=== PATIENT | male | born 1955 | race Caucasian/White ===

== ENCOUNTER 2019-07-19 10:24 | Emergency (ER) | payer OTHER ==
--- NOTE | 2019-07-19 10:55 | EDM.PDOC ---
ED HPI GENERAL MEDICAL PROBLEM - General Stated Complaint: TWISTED ANKLE AT WORK + SOME OTHER THINGS Time Seen by Provider: 07/19/19 10:45 Source of Information: Reports: Patient, RN, RN Notes Reviewed History Limitations: Reports: No Limitations - History of Present Illness INITIAL COMMENTS - FREE TEXT/NARRATIVE: Presents to ER ambulating with complaint of twisting left ankle. 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 Patient lost his balance when he twisted his ankle fell backward landed on but and left hip, hit his head on a bike rack. Patient said he hit his head on the bike rack hard enough that his hat flew off and his glasses flew off. Patient states possible seconds loss of consciousness. States this occurred about 730 this morning, and he continued to work until now. Patient denies any other health problems other than seasonal allergies. Patient states he does take a baby aspirin daily. Complains of pain in the left ankle, left hip area. GCS upon arrival is 15. GCS at 1 hour: 15 GCS at discharge: 15 Onset: Today, Sudden Duration: Constant Location: Reports: Lower Extremity, Left Quality: Reports: Ache, Throbbing Severity: Moderate Improves with: Reports: None Worsens with: Reports: None Associated Symptoms: Reports: No Other Symptoms - Related Data Allergies Allergy/AdvReac Type Severity Reaction Status Date / Time metoprolol succinate Allergy Dizziness Verified 07/19/19 10:34 [From Toprol XL] sulfamethoxazole Allergy Lightheaded Verified 07/19/19 10:34 [From Bactrim] ness trimethoprim [From Bactrim] Allergy Lightheaded Verified 07/19/19 10:34 ness Home Meds: Home Meds Aspirin [Ecotrin] 81 mg PO DAILY 04/29/15 [History] Cetirizine [ZyrTEC] 10 mg PO DAILY 04/29/15 [History] Fluticasone Propionate [Flonase] 2 sprays NASBOTH DAILY PRN 04/29/15 [History] Hydrochlorothiazide 25 mg PO DAILY 04/29/15 [History] Ibuprofen [Advil] 200 mg PO Q6HR PRN 04/29/15 [History] Ketotifen Fumarate [Zaditor] 1 drop EYEBOTH BID PRN 04/29/15 [History] Losartan Potassium [Cozaar] 100 mg PO DAILY 04/29/15 [History] Naphazoline HCl/Pheniramine [Naphcon-A Eye Drops] 1 drop EYEBOTH QID PRN [History] atorvaSTATin [Lipitor] 20 mg PO BEDTIME 04/29/15 [History] Past Medical History HEENT History: Reports: None Cardiovascular History: Reports: Hypertension Respiratory History: Reports: None Gastrointestinal History: Reports: None Genitourinary History: Reports: None Musculoskeletal History: Reports: None Psychiatric History: Reports: Anxiety Endocrine/Metabolic History: Reports: None Hematologic History: Reports: None Immunologic History: Reports: None Oncologic (Cancer) History: Reports: None Dermatologic History: Reports: None Social & Family History - Family History HEENT: Reports: None Cardiac: Reports: Angina Respiratory: Reports: None GI: Reports: None Review of Systems - Review of Systems Review Of Systems: Comprehensive ROS is negative, except as noted in HPI. ED EXAM, GENERAL - Physical Exam Exam: See Below Exam Limited By: No Limitations General Appearance: Alert, WD/WN, No Apparent Distress Eye Exam: Bilateral Eye: EOMI, Normal Inspection Ears: Normal External Exam, Hearing Grossly Normal Nose: Normal Inspection Throat/Mouth: Normal Inspection, Normal Voice, No Airway Compromise Head: Normocephalic, Other (mild abrasion to the back of the head) Neck: Normal Inspection, Supple, Non-Tender, Full Range of Motion Respiratory/Chest: No Respiratory Distress, Lungs Clear, Normal Breath Sounds, No Accessory Muscle Use, Chest Non-Tender Cardiovascular: Normal Peripheral Pulses, Regular Rate, Rhythm, No Edema, No Gallop, No JVD, No Murmur, No Rub Peripheral Pulses: 2+: Radial (L), Radial (R), Dorsalis Pedis (L), Dorsalis Pedis (R) GI/Abdominal: Normal Bowel Sounds, Soft, Non-Tender (Male) Exam: Deferred Rectal (Males) Exam: Deferred Back Exam: Normal Inspection, Full Range of Motion, NT Extremities: Normal Inspection, No Pedal Edema, Normal Capillary Refill, Joint Swelling (left ankle), Limited Range of Motion (left ankle) Neurological: Alert, Oriented, CN II-XII Intact, Normal Cognition, Normal Gait, Normal Reflexes, No Motor/Sensory Deficits Psychiatric: Normal Affect, Normal Mood Skin Exam: Warm, Dry, Intact, Normal Color, No Rash Lymphatic: No Adenopathy ED TRAUMA PROCEDURES - Splinting Left Lower Extremity Pre-Procedure NV Status: Normal Post-Procedure NV Status: Normal Splint Material: Air Splint Splint Design: Stirrup Applied & Form Fitted By: Nurse Provider Post-Splint Application NV Check: NV Status Normal, Good Position Complications: No Course - Orders/Labs/Meds Orders: Active Orders 24 hr Category Date Time Status Ankle Min 3V Lt [CR] Urgent Exams 07/19/19 10:51 Taken Cervical Spine wo Cont [CT] Urgent Exams 07/19/19 10:55 Taken Head wo Cont [CT] Urgent Exams 07/19/19 10:51 Taken Hip Min 2V w Pelvis Bi [CR] Stat Exams 07/19/19 10:51 Taken - Radiology Interpretation Free Text/Narrative:: Head CT wo contrast: FINDINGS: Brain: Patchy lucencies in the white matter are nonspecific but most suggestive of chronic microvascular ischemic disease. There is no evidence for large acute cortical infarct. No intracranial hemorrhage or extraaxial collection is identified. There is no significant intracranial mass effect. Ventricles: Normal. No ventriculomegaly. Bones/joints: Unremarkable. No acute fracture. Sinuses: Visualized sinuses are unremarkable. No fluid levels. Mastoid air cells: Visualized mastoid air cells are well aerated. Soft tissues: Unremarkable. IMPRESSION: No CT evidence for acute intracranial abnormality. Thank you for allowing us to participate in the care of your patient. Dictated and Authenticated by: Brady Potts MD 07/19/2019 11:11 AM Central Time ([place]) C Spine CT wo contrast: FINDINGS: Vertebrae: Straightening of the cervical lordotic curve could be secondary to muscle spasm or positioning. Alignment is otherwise maintained. Vertebral body heights are intact. The dens appears intact. No acute fracture is identified. Multilevel findings: There is multilevel spondylosis with variable osteophytic encroachment of several neural foramina. CT is not optimal for the evaluation of the discs, neural foramina or spinal canal or cord. There may be spinal stenosis at C5-C6. Soft tissues: The prevertebral soft tissues are not significantly swollen. Lungs: Visualized lung apices are clear. Pleural space: No apical pneumothorax is identified. IMPRESSION: 1. No acute fracture or dislocation identified. 2. Straightening of the cervical lordotic curve, could be secondary to muscle spasm or positioning. 3. Spondylosis with potential spinal stenosis at C5-C6. The discs and integrity of the cord could be better evaluated by means of MRI as clinically appropriate. Thank you for allowing us to participate in the care of your patient. Dictated and Authenticated by: Brady Potts MD 07/19/2019 11:21 AM Central Time ([place]) Hips with Pelvis BI: FINDINGS: Bones/joints: No acute fracture or dislocation is identified. The femoral head articular contours are maintained, and the femoral heads appear to be of normal density. There is very mild osteophyte formation about both hip joints. Lower lumbar spondylosis is noted. No focal lytic or blastic lesion is identified. Soft tissues: The soft tissues appear grossly unremarkable. IMPRESSION: 1. No acute fracture or dislocation identified. MRI would be more sensitive to pelvic and hip fracture as clinically appropriate. 2. Degenerative changes as described. Thank you for allowing us to participate in the care of your patient. Dictated and Authenticated by: Brady Potts MD 07/19/2019 11:22 AM Central Time ([place]) Left ankle xray: FINDINGS: Bones/joints: No acute fracture or dislocation is identified. The ankle mortise is preserved on these nonstressed views. Very mild osteophyte formation is present off the tips of the medial and lateral malleoli. There are small plantar and posterior calcaneal enthesophytes. There is no osseous erosion or cortical destruction. Soft tissues: The soft tissues are mildly swollen anteriorly. IMPRESSION: 1. Mild anterior soft tissue swelling without acute fracture or dislocation identified. May consider follow-up in 7 to 10 days or correlation with MRI if symptoms persist. 2. Degenerative changes as described. Thank you for allowing us to participate in the care of your patient. Dictated and Authenticated by: Brady Potts MD 07/19/2019 11:14 AM Central Time ([place]) See rad report Departure - Departure Time of Disposition: 12:04 Disposition: Home, Self-Care 01 Condition: Fair Clinical Impression: Sprain of ankle, left Qualifiers: Encounter type: initial encounter Involved ligament of ankle: unspecified ligament Qualified Code(s): S93.402A - Sprain of unspecified ligament of left ankle, initial encounter Fall Qualifiers: Encounter type: initial encounter Qualified Code(s): W19.XXXA - Unspecified fall, initial encounter - Discharge Information Instructions: How to Use Cold Therapy, [id number], Ankle Sprain, [id number] , Elastic Bandage and RICE Therapy Referrals: PCP,None [Primary Care Provider] - Forms: ED Department Discharge Additional Instructions: Rest Elevate the leg/ankle as possible Compression to the ankle when up and about, may take off at bedtime May use Tylenol as directed for pain Follow up with your primary care facility in 7-10 days if no improvement Ice to the area as tolerated Sepsis Event Note - Focused Exam Date Exam was Performed: 07/19/19 Time Exam was Performed: 12:33 - My Orders Last 24 Hours: My Active Orders 07/19/19 10:51 Ankle Min 3V Lt [CR] Urgent Head wo Cont [CT] Urgent Hip Min 2V w Pelvis Bi [CR] Stat 07/19/19 10:55 Cervical Spine wo Cont [CT] Urgent - Assessment/Plan Last 24 Hours: My Active Orders 07/19/19 10:51 Ankle Min 3V Lt [CR] Urgent Head wo Cont [CT] Urgent Hip Min 2V w Pelvis Bi [CR] Stat 07/19/19 10:55 Cervical Spine wo Cont [CT] Urgent
== END 2019-07-19 12:06 | disposition home or self-care (01) ==
LOC: DL.ED 10:24
DX: S93.402A Sprain of unspecified ligament of left ankle, initial encounter (principal); I10 Essential (primary) hypertension; F41.9 Anxiety disorder, unspecified; Z88.8 Allergy status to other drugs, medicaments and biological substances; Z88.2 Allergy status to sulfonamides; Z88.1 Allergy status to other antibiotic agents; Z79.82 Long term (current) use of aspirin; Z79.899 Other long term (current) drug therapy; X50.1XXA Overexertion from prolonged static or awkward postures, initial encounter; Y99.0 Civilian activity done for income or pay
CPT/HCPCS: 70450; 72125; 73610-LT; 99284-25

== ENCOUNTER 2020-11-24 18:06 | Emergency (ER) | payer BC, OTHER ==
[2020-11-24 18:27] VITALS: BP 156/101; PULSE 60
--- NOTE | 2020-11-24 19:05 | EDM.PDOC ---
<Carl Cooley Hattie - Last Filed: 11/24/20 19:00> ED HPI GENERAL MEDICAL PROBLEM - General Chief Complaint: General Stated Complaint: LIPS NUMB, LEFT ARM,HAND NUMB Time Seen by Provider: 11/24/20 19:00 - History of Present Illness INITIAL COMMENTS - FREE TEXT/NARRATIVE: 65 y/o M c/o severe KC, lower neck pn, left sided lip numbness both upper and lower as well as L forearm and hand numbness. Symptoms began at 5 pm and slowly resolved prior to arrival. Pt hx of htn. Pt states he was sitting on a stool drinking a beer and developed sudden lip and arm numbness. Pt denies recent trauma, drugs, excessive etoh, fever, cough, chills, cp, abd pn, extremity pn, extremity weakness, facial droop. Pt drove himself to the ER without difficulty. Onset: Today, Sudden Duration: Hour(s): Location: Reports: Face, Upper Extremity, Left - Related Data Allergies Allergy/AdvReac Type Severity Reaction Status Date / Time metoprolol succinate Allergy Dizziness Verified 11/24/20 18:29 [From Toprol XL] sulfamethoxazole Allergy Lightheaded Verified 11/24/20 18:29 [From Bactrim] ness trimethoprim [From Bactrim] Allergy Lightheaded Verified 11/24/20 18:29 ness Home Meds: Home Meds Aspirin [Ecotrin] 81 mg PO DAILY 04/29/15 [History] Cetirizine [ZyrTEC] 10 mg PO DAILY 04/29/15 [History] Fluticasone Propionate [Flonase] 2 sprays NASBOTH DAILY PRN 04/29/15 [History] Hydrochlorothiazide 25 mg PO DAILY 04/29/15 [History] Ibuprofen [Advil] 200 mg PO Q6HR PRN 04/29/15 [History] Ketotifen Fumarate [Zaditor] 1 drop EYEBOTH BID PRN 04/29/15 [History] Losartan Potassium [Cozaar] 100 mg PO DAILY 04/29/15 [History] Naphazoline HCl/Pheniramine [Naphcon-A Eye Drops] 1 drop EYEBOTH QID PRN 04/29/15 [History] atorvaSTATin [Lipitor] 20 mg PO BEDTIME 04/29/15 [History] Past Medical History HEENT History: Reports: None Cardiovascular History: Reports: Hypertension Respiratory History: Reports: None Gastrointestinal History: Reports: None Genitourinary History: Reports: None Musculoskeletal History: Reports: None Psychiatric History: Reports: Anxiety Endocrine/Metabolic History: Reports: None Hematologic History: Reports: None Immunologic History: Reports: None Oncologic (Cancer) History: Reports: None Dermatologic History: Reports: None Social & Family History - Family History HEENT: Reports: None Cardiac: Reports: Angina Respiratory: Reports: None GI: Reports: None - Tobacco Use Tobacco Use Status *Q: Never Tobacco User Second Hand Smoke Exposure: No - Caffeine Use Caffeine Use: Reports: Coffee - Recreational Drug Use Recreational Drug Use: No ED ROS GENERAL - Review of Systems Review Of Systems: Comprehensive ROS is negative, except as noted in HPI. ED EXAM, GENERAL - Physical Exam Exam: See Below Exam Limited By: No Limitations General Appearance: Alert, No Apparent Distress Eye Exam: Bilateral Eye: PERRL (with conjugate gaze) Ears: Normal External Exam, Normal Canal, Hearing Grossly Normal, Normal TMs Nose: Normal Inspection, Normal Mucosa, No Blood Throat/Mouth: Normal Inspection, Normal Lips, Normal Teeth, Normal Gums, Normal Oropharynx, Normal Voice, No Airway Compromise Head: Atraumatic, Normocephalic Neck: Normal Inspection, Supple, Non-Tender, Full Range of Motion Respiratory/Chest: No Respiratory Distress, Lungs Clear, Normal Breath Sounds, No Accessory Muscle Use, Chest Non-Tender Cardiovascular: Normal Peripheral Pulses, Regular Rate, Rhythm, No Edema, No Gallop, No JVD, No Murmur, No Rub GI/Abdominal: Soft, Non-Tender (Male) Exam: Deferred Rectal (Males) Exam: Deferred Back Exam: Normal Inspection, Full Range of Motion, NT Extremities: Normal Inspection, Normal Range of Motion, Non-Tender, No Pedal Edema, Normal Capillary Refill, Other (no facial droop, no pronator drift, equal neurological physiotherapist, equal pedal flexion and extension.) Departure - Departure Disposition: Home, Self-Care 01 Clinical Impression: Paresthesia of lower lip, Elevated TSH, Paresthesia of left upper extremity Headache Qualifiers: Headache type: unspecified Headache chronicity pattern: acute headache Intractability: not intractable Qualified Code(s): R51.9 - Headache, unspecified - Discharge Information Instructions: Paresthesia, General Headache Without Cause, Form - Headache Record Forms: ED Department Discharge Additional Instructions: 1.) Reestablish with a primary care provider as soon as possible. 2.) Discuss your elevated TSH level with your primary care provider as you may require prescription medication. 3.) Continue alternating ibuprofen and acetaminophen for headache, consider starting a headache journal should you not experience alleviation in headache. Sepsis Event Note (ED) - Evaluation Sepsis Screening Result: No Definite Risk <Rochelle Dumonte - Last Filed: 11/24/20 21:30> #1 Interpretation EKG Date: 11/24/20 Time: 19:23 Rhythm: Other (Sinus Bradycardia) Rate (Beats/Min): 59 [place]: Normal P-Wave: Present QRS: Normal ST-T: Normal QT: Normal DE/PQ Interval: 0.145 Comparison: No Change EKG Interpretation Comments: SB; No evidence of acute myocardial ischemia Course - Vital Signs Last Recorded V/S: Last Vital Signs Temp 97.9 F 11/24/20 18:24 Pulse 60 11/24/20 18:24 Resp 18 11/24/20 18:24 BP 156/101 H 11/24/20 18:24 Pulse Ox 97 11/24/20 18:24 - Orders/Labs/Meds Orders: Active Orders 24 hr Category Date Time Status FREE T3 [REF] Stat Lab 11/24/20 20:05 Ordered Labs: Laboratory Tests 11/24/20 11/24/20 11/24/20 Range/Units 19:20 19:20 19:20 WBC 7.5 (5.0-10.0) 10^3/uL RBC 4.66 (4.6-6.2) 10^6/uL Hgb 14.7 (14.0-18.0) g/dL Hct 44.6 (40.0-54.0) % MCV 95.7 (80-100) fL MCH 31.5 (27.0-34.0) pg MCHC 33.0 (33.0-35.0) g/dL Plt Count 250 (150-450) 10^3/uL Neut % (Auto) 49.2 (42.2-75.2) % Lymph % (Auto) 36.0 (20.5-50.1) % [place] % (Auto) 11.2 H (2-8) % Eos % (Auto) 3.1 H (1.0-3.0) % Baso % (Auto) 0.5 (0.0-1.0) % ESR 3 (0-15) mm/hr Sodium 137 (136-145) mmol/L Potassium 4.2 (3.5-5.1) mmol/L Chloride 102 (98-107) mmol/L Carbon Dioxide 28 (21-32) mmol/L Anion Gap 11.2 (7-13) mEq/L BUN 15 (7-18) mg/dL Creatinine 1.03 (0.70-1.30) mg/dL Est Cr Clr Drug Dosing 81.88 mL/min Estimated GFR (MDRD) > 60 BUN/Creatinine Ratio 14.6 (No establ ref range) Glucose 89 (70-99) mg/dL Calcium 8.7 (8.5-10.1) mg/dL Magnesium 2.1 (1.8-2.4) mg/dL Total Bilirubin 0.2 (0.2-1.0) mg/dL AST 21 (15-37) U/L ALT 41 (16-63) U/L Alkaline Phosphatase 114 (46-116) U/L Lactate Dehydrogenase 145 (85-227) U/L Troponin I High Sens 6 (<=76) pg/mL C-Reactive Protein < 0.2 (0.0-0.9) mg/dL Total Protein 7.1 (6.4-8.2) g/dL Albumin 3.5 (3.4-5.0) g/dL Globulin 3.6 Albumin/Globulin Ratio 1.0 Free T4 (0.76-1.46) ng/dL TSH, Ultra Sensitive 3.80 H (0.36-3.74) uIU/mL 11/24/20 Range/Units 19:20 WBC (5.0-10.0) 10^3/uL RBC (4.6-6.2) 10^6/uL Hgb (14.0-18.0) g/dL Hct (40.0-54.0) % MCV (80-100) fL MCH (27.0-34.0) pg MCHC (33.0-35.0) g/dL Plt Count (150-450) 10^3/uL Neut % (Auto) (42.2-75.2) % Lymph % (Auto) (20.5-50.1) % [place] % (Auto) (2-8) % Eos % (Auto) (1.0-3.0) % Baso % (Auto) (0.0-1.0) % ESR (0-15) mm/hr Sodium (136-145) mmol/L Potassium (3.5-5.1) mmol/L Chloride (98-107) mmol/L Carbon Dioxide (21-32) mmol/L Anion Gap (7-13) mEq/L BUN (7-18) mg/dL Creatinine (0.70-1.30) mg/dL Est Cr Clr Drug Dosing mL/min Estimated GFR (MDRD) BUN/Creatinine Ratio (No establ ref range) Glucose (70-99) mg/dL Calcium (8.5-10.1) mg/dL Magnesium (1.8-2.4) mg/dL Total Bilirubin (0.2-1.0) mg/dL AST (15-37) U/L ALT (16-63) U/L Alkaline Phosphatase (46-116) U/L Lactate Dehydrogenase (85-227) U/L Troponin I High Sens (<=76) pg/mL C-Reactive Protein (0.0-0.9) mg/dL Total Protein (6.4-8.2) g/dL Albumin (3.4-5.0) g/dL Globulin Albumin/Globulin Ratio Free T4 0.94 (0.76-1.46) ng/dL TSH, Ultra Sensitive (0.36-3.74) uIU/mL - Radiology Interpretation Free Text/Narrative:: [facility] Final Radiology Report Call: [phone] assistance Online chat: [email or web address] Name: VIRGEN THOMSON Age: 65Years M Date: 11/24/2020 SSN: -- : 1955 Study: CT CERVICAL SPINE WO CONT Requesting Physician: Carl Cooley Images: [id number] Addl Studies: Provided Clinical History: kc, l arm numbness, lip numbness, Contrast: Without Contrast Medium: Contrast Amount: Contrast Method: CONFIDENTIALITY STATEMENT This report is intended only for use by the referring physician, and only in accordance with law. If you received this in error, call [phone]. Page 1 of 1 PROCEDURE INFORMATION: Exam: CT Cervical Spine Without Contrast Exam date and time: 11/24/2020 7:44 PM Age: 65 years old Clinical indication: Other: No trauma--pain; Additional info: KC, L arm numbness, lip numbness, TECHNIQUE: Imaging protocol: Computed tomography images of the cervical spine without contrast. Radiation optimization: All CT scans at this facility use at least one of these dose optimization techniques: automated exposure control; mA and/or kV adjustment per patient size (includes targeted exams where dose is matched to clinical indication); or iterative reconstruction. COMPARISON: CT Cervical Spine wo Cont 07/19/2019 11:02 AM FINDINGS: Bones/joints: No acute fracture. Normal alignment. Discs/Spinal canal/Neural foramina: No significant disc protrusion. No severe spinal canal stenosis. No significant neural foraminal narrowing. Lungs: Lung apices are normal. Soft tissues: Unremarkable. IMPRESSION: No acute findings. Thank you for allowing us to participate in the care of your patient. Dictated and Authenticated by: Immanuel Giordano MD 11/24/2020 8:52 PM Central Time ([place]) [facility] Final Radiology Report with Addendum Call: [phone] assistance Online chat: [email or web address] Name: VIRGEN THOMSON Age: 65Years M Date: 11/24/2020 SSN: -- : 1955 Study: CT HEAD WO CONT Requesting Physician: Carl Cooley Images: [id number] Addl Studies: Provided Clinical History: kc, l arm numbness, lip numbness, Contrast: Without Contrast Medium: Contrast Amount: Contrast Method: Page 1 of 2 Addendum created by Immanuel Giordano MD on 11/24/2020 9:00 PM Central Time ([place]): (apologies for typo) IMPRESSION: No acute intracranial pathology. Initial Report created on 11/24/2020 8:49 PM Central Time ([place]): PROCEDURE INFORMATION: Exam: CT Head Without Contrast Exam date and time: 11/24/2020 7:44 PM Age: 65 years old Clinical indication: Other: No trauma; Additional info: KC, L arm numbness, lip numbness, TECHNIQUE: Imaging protocol: Computed tomography of the head without contrast. Radiation optimization: All CT scans at this facility use at least one of these dose optimization techniques: automated exposure control; mA and/or kV adjustment per patient size (includes targeted exams where dose is matched to clinical indication); or iterative reconstruction. COMPARISON: CT Head wo Cont 07/19/2019 11:02 AM FINDINGS: Brain: Normal. No hemorrhage. Unremarkable white matter. No mass effect. Cerebral ventricles: No ventriculomegaly. Paranasal sinuses: Mild mucosal thickening in the maxillary sinuses. Mastoid air cells: Visualized mastoid air cells are well aerated. Bones/joints: Unremarkable. No acute fracture. Soft tissues: Unremarkable. IMPRESSION: No acute intra-abdominal pathology Thank you for allowing us to participate in the care of your patient. Dictated and Authenticated by: Immanuel Giordano MD 11/24/2020 8:49 PM Central Time ([place]) - Re-Assessments/Exams Free Text/Narrative Re-Assessment/Exam: 11/24/20 Care of patient assumed by song writer for Carl Cooley PA-C at 1900. CT head and cervical spine unremarkable. Findings of examination, imaging, and lab work reviewed with patient. Discussed TSH and T4 level will be in contact with patient regarding T3 as this is a send-out. Patient instructed to reestablish with PCP as medication management may be warranted. Red flag signs and symptoms which would warrant reevaluation reviewed. Patient verbalized understanding and agreement with the plan of care. Departure - Departure Time of Disposition: 21:13 Condition: Good - Discharge Information *PRESCRIPTION DRUG MONITORING PROGRAM REVIEWED*: Not Applicable *COPY OF PRESCRIPTION DRUG MONITORING REPORT IN PATIENT TONNY: Not Applicable Sepsis Event Note (ED) - Focused Exam Vital Signs: Vital Signs Temp Pulse Resp BP Pulse Ox 11/24/20 18:24 97.9 F 60 18 156/101 H 97 - My Orders Last 24 Hours: My Active Orders 11/24/20 20:05 FREE T3 [REF] Stat - Assessment/Plan Last 24 Hours: My Active Orders 11/24/20 20:05 FREE T3 [REF] Stat
[2020-11-24 20:02] LABS: ANION GAP 11.2 mEq/L (7-13); CHLORIDE,CL 102 mmol/L (98-107); SODIUM,NA 137 mmol/L (136-145)
--- NOTE | 2020-11-24 20:49 | CT ---
PROCEDURE INFORMATION: Exam: CT Head Without Contrast Exam date and time: 11/24/2020 7:44 PM Age: 65 years old Clinical indication: Other: No trauma; Additional info: KC, L arm numbness, lip numbness, TECHNIQUE: Imaging protocol: Computed tomography of the head without contrast. Radiation optimization: All CT scans at this facility use at least one of these dose optimization techniques: automated exposure control; mA and/or kV adjustment per patient size (includes targeted exams where dose is matched to clinical indication); or iterative reconstruction. COMPARISON: CT Head wo Cont 07/19/2019 11:02 AM FINDINGS: Brain: Normal. No hemorrhage. Unremarkable white matter. No mass effect. Cerebral ventricles: No ventriculomegaly. Paranasal sinuses: Mild mucosal thickening in the maxillary sinuses. Mastoid air cells: Visualized mastoid air cells are well aerated. Bones/joints: Unremarkable. No acute fracture. Soft tissues: Unremarkable. IMPRESSION: No acute intra-abdominal pathology
--- NOTE | 2020-11-24 20:53 | CT ---
PROCEDURE INFORMATION: Exam: CT Cervical Spine Without Contrast Exam date and time: 11/24/2020 7:44 PM Age: 65 years old Clinical indication: Other: No trauma--pain; Additional info: KC, L arm numbness, lip numbness, TECHNIQUE: Imaging protocol: Computed tomography images of the cervical spine without contrast. Radiation optimization: All CT scans at this facility use at least one of these dose optimization techniques: automated exposure control; mA and/or kV adjustment per patient size (includes targeted exams where dose is matched to clinical indication); or iterative reconstruction. COMPARISON: CT Cervical Spine wo Cont 07/19/2019 11:02 AM FINDINGS: Bones/joints: No acute fracture. Normal alignment. Discs/Spinal canal/Neural foramina: No significant disc protrusion. No severe spinal canal stenosis. No significant neural foraminal narrowing. Lungs: Lung apices are normal. Soft tissues: Unremarkable. IMPRESSION: No acute findings.
== END 2020-11-24 21:25 | disposition home or self-care (01) ==
LOC: DL.ED 18:06
DX: R20.2 Paresthesia of skin (principal); R51.9 Headache, unspecified; R94.6 Abnormal results of thyroid function studies; I10 Essential (primary) hypertension; R00.1 Bradycardia, unspecified; Z88.2 Allergy status to sulfonamides; Z88.8 Allergy status to other drugs, medicaments and biological substances; Z79.82 Long term (current) use of aspirin; Z79.899 Other long term (current) drug therapy
CPT/HCPCS: 36415; 70450; 72125; 80053; 83615; 83735; 84439; 84443; 84481; 84484; 85025; 85651; 86140; 93005; 99284-25

== ENCOUNTER 2024-07-28 21:45 | Emergency (ER) | payer BC, MEDICARE ==
[2024-07-28 21:58] VITALS: BP 157/96; PULSE 73
== END 2024-07-28 22:30 | disposition home or self-care (01) ==
LOC: DL.ED 21:45
DX: S61.250A Open bite of right index finger without damage to nail, initial encounter (principal); I10 Essential (primary) hypertension; Z88.8 Allergy status to other drugs, medicaments and biological substances; Z79.82 Long term (current) use of aspirin; Z79.899 Other long term (current) drug therapy; W54.0XXA Bitten by dog, initial encounter
CPT/HCPCS: 12001; 99282; 99283